=== PATIENT | female | born 1985 | race Caucasian/White ===

== ENCOUNTER 2020-11-28 10:12 | Day surgery (SDC) | payer OTHER, SELFPAY ==
[2020-11-28] VITALS (10 sets, daily range): BP systolic 103–122; BP diastolic 63–78; PULSE 83–114; RESP 14–18; TEMP 36.4–36.7; O2SAT 98–100; BMI 39.4
[2020-11-28] MEDS: LACTATED RINGERS 1,000 ML 42 ML IV (10:44)
[2020-11-28] MEDS: SCOPOLAMINE 1 PATCH TOP (10:46)
[2020-11-28] MEDS: ACETAMINOPHEN 325 MG TABLET 975 MG PO (10:46)
--- NOTE | 2020-11-28 12:54 | PM.PREOP ---
Pre-operative Note COVID-19 COVID-19 status: Result pending Interval Note History & Physical reviewed/Exam performed by Physician: Yes Changes to H&P: No
--- NOTE | 2020-11-28 12:55 | PM.HP.1 ---
History of Present Illness History of Present Illness Date Patient Seen: 11/28/20 Time Patient Seen: 12:55 Chief complaint: Chronic tonsillitis Narrative: 35-year-old female with a diagnosis of chronic tonsillitis, recurring acute tonsillitis, throat pain, and upper airway obstruction, with failure of medical therapy, presents for tonsillectomy and possible adenoidectomy. She was last seen in clinic 10/23/2020, no interval changes, no recent cough, cold, or fever. She plans on returning to [place] later today. Patient History Family & Social History Social History: household members none Tobacco & Substance use: Smoking Status Never smoker alcohol intake current alcohol intake frequency holiday/special occasion Substance Use Type does not use Meds Home Medications and Allergies Home Medications Medication Instructions Recorded Confirmed Type venlafaxine 75 mg PO DAILY 11/27/20 11/28/20 History vitamin B complex 1 tab PO DAILY 11/27/20 11/28/20 History Review of Systems Review of Systems ROS: Yes All systems reviewed with the patient and are negative except as otherwise documented Exam Vital Signs (past 8 hours): - 11/28/20 10:48 Temperature 98.1 F Pulse Rate 92 H Respiratory Rate 16 Blood Pressure 115/78 Pulse Oximetry 100 Oxygen Delivery Method Room Air Narrative Exam Narrative: Well-developed well-nourished female alert and oriented, no acute distress. Heart regular rate and rhythm without murmur, lungs clear to auscultation bilaterally Assessment & Plan Assessment & Plan narrative: Assessment: Chronic tonsillitis, recurring acute tonsillitis, throat pain, upper airway obstruction Plan: Following discussion of the material risks benefits complications and alternatives, the patient elected to proceed with tonsillectomy and possible adenoidectomy.
--- NOTE | 2020-11-28 12:57 | PM.OP.1 ---
Operative Date/Time/Diagnoses Date of procedure: 11/28/20 Time of procedure: 13:52 Pre-op diagnosis: Chronic tonsillitis, recurring acute tonsillitis, throat pain, upper airway obstruction Post-op diagnosis: same Procedure & Clinicians Procedure: Tonsillectomy Same procedure as scheduled: Yes Indications: 35-year-old female with the above diagnoses incompletely managed with medical therapy presents for the above procedures. Following discussion of the material risks benefits complications and alternatives, she elected to proceed. Surgeon: Juan Mejias Click Yes if Unassisted: Yes Anesthesia Type: General and Local Operative Notes Findings: Intact palate, single uvula, 2+ tonsils, no significant adenoids Closure Type: not applicable Specimen(s): none sent Estimated Blood Loss (mL): 20 Blood products transfused: none Procedure in detail: Following identification and confirmation of consent the patient was brought to the operating room suite and placed in the supine position. General endotracheal anesthesia was administered. A head wrap, shoulder roll, and mouth gag were placed and a red rubber catheter was inserted through the nostril and out the mouth to retract the soft palate. There was no significant adenoid tissue. The left tonsil was retracted medially and suction electrocautery on a setting of 30 was used to dissect the tonsil in a subcapsular plane, followed by hemostasis with the same. This process was repeated on the right side with identical findings. The tonsillar fossae were superficially infiltrated bilaterally with a 1:1 mixture of 1% lidocaine 1 100,000 epinephrine and 0.25% Marcaine 1 to 017100 epinephrine. Mouth gag and rubber catheter were removed and the patient was extubated in the operating room and taken to the recovery room in stable condition without known complication. Complications: none Post-operative Condition: stable Disposition: same day surgery Plan for aftercare: Tylenol alternating with Advil for baseline pain control, oxycodone for breakthrough pain. Push fluids, aim for 4 L daily, no heavy lifting or straining 2 weeks.
--- NOTE | 2020-11-28 13:31 | SUR.OPER ---
Supine on padded OR bed, head on gel doughnut, arms secured on padded arm boards at <90 degrees abduction, legs uncrossed, safety belt at thigh, tape over blanket over lower legs.
[2020-11-28] MEDS: LIDOCAINE 1% W/EPI 20 ML INJ (13:35)
[2020-11-28] MEDS: BUPIVACAINE 0.25% W/ EPI 30 ML VIAL INJ (13:35)
[2020-11-28] MEDS: OXYCODONE IR 5 MG TABLET PO (14:22)
[2020-11-28] MEDS: ONDANSETRON 4 MG/2 ML INJ IV (14:22)
== END 2020-11-28 14:45 | disposition home or self-care (01) ==
PROVIDERS: PCP Nurse Practitioner Family; Referring Provider Otolaryngology; Visit Provider Otolaryngology
PROC: (CPT 42826; principal; 2020-11-28 11:15)
DX: J35.01 Chronic tonsillitis (principal); J98.8 Other specified respiratory disorders; F32.9 Major depressive disorder, single episode, unspecified
CPT/HCPCS: 42826; 81025; J0330; J1100; J2250; J2405; J2704; J3010

== ENCOUNTER → 2021-04-04 12:26 | Outpatient (CLI) | payer OTHER, SELFPAY ==
--- NOTE | 2021-04-04 | DI.US.S_ITS ---
PROCEDURE: US THYROID INDICATIONS: RIGHT THYROID NODULES TECHNIQUE: Real-time scanning was performed of the thyroid gland, with image documentation. COMPARISON: Outside Facility, [facility], US SOFT TISSUE HEAD OR NECK, 12/26/2020, 14:12. FINDINGS: Right: Thyroid lobe is normal in size and is homogeneous in echotexture. Left: Thyroid lobe is normal in size and contains a single nodule. Nodule number: 1 Location: Left mid Size: 0.9 x 0.6 x 0.9 cm. Composition: Solid Echogenicity: Hypoechoic Shape: Wider than tall Margins: Smooth Echogenic foci: Non Total points: 4 ACR TI-RADS category: Moderately suspicious IMPRESSION: 1. Single small nodule in the mid aspect of the left thyroid lobe. Nodule has imaging characteristics which are moderately suspicious (TI-RADS 4). Given size and imaging characteristics of the nodule and following discussion with the patient, scheduled fine-needle aspiration was canceled. Patient preferred option of follow-up ultrasound at 1, 3 and 5 years. 2. Nodule identified in the superior margin of the left lobe of thyroid gland by prior ultrasound obtained December 26, 2020 is not identified in the current study. ACR TI-RADS definitions and recommendations: TI-RADS 1 (benign): 0 points. FNA not needed. TI-RADS 2 (not suspicious): 2 points. FNA not needed. TI-RADS 3 (mildly suspicious): 3 points. * FNA if 2.5 cm or larger, follow up if 1.5 cm or larger (at 1, 3, and 5 years). TI-RADS 4 (moderately suspicious): 4-6 points. * FNA if 1.5 cm or larger, follow up if 1 cm or larger (at 1, 2, 3, and 5 years). TI-RADS 5 (highly suspicious): 7 points or more. * FNA if 1 cm or larger, follow up if 0.5 cm or larger (every year for 5 years). Dictated by: Cherri Wong MD, PhD on 04/04/2021 at 15:39 Approved by: Cherri Wong MD, PhD on 04/04/2021 at 15:45
== END ==
PROVIDERS: PCP Family Medicine; Referring Provider Otolaryngology; Visit Provider Otolaryngology
DX: E04.1 Nontoxic single thyroid nodule (principal)
CPT/HCPCS: 76536

== ENCOUNTER 2022-09-07 10:33 | Day surgery (SDC) | payer OTHER, SELFPAY ==
[2022-09-01 15:19] VITALS: BMI 43.7
[2022-09-07] VITALS (8 sets, daily range): BP systolic 115–141; BP diastolic 76–91; PULSE 80–94; RESP 16–27; TEMP 36.2–36.6; O2SAT 98–100; BMI 43.2
--- NOTE | 2022-09-07 | PATH_ITS ---
[facility] Accession Number: [id number] No. of containers..01 Tissue . 01 Material submitted: . endometrium - ENDOMETRIAL CURRETINGS . 01 Diagnosis: A. Endometrium, Curettage: Late secretory phase endometrium. Focal features of polyp and breakdown with extensive hyalinization. No evidence of endometrioid intraepithelial neoplasia or malignancy. [facility] 09/11/2022 1535 Local . 01 Electronically signed: . Melly Chapin MD, Pathologist NPI- [id number] . 01 Gross description: . ENDOMETRIAL CURRETINGS: Received in formalin are minute fragments of mucoid and hemorrhagic material measuring 1.2 x 0.5 x 0.3 cm in aggregate. Submitted in toto in 1 cassette. /BRENDA 09/08/2022 1859 Local . 01 Pathologist provided ICD-10: N84.0, R93.89 . 01 CPT . 585456 Specimen Comment: A courtesy copy of this report has been sent to [phone] Performed at: 01 [facility] [address] [place] [address], [place], [place] [id number] MD Suhas Grider MD Phone: [phone]
[2022-09-07] MEDS: LACTATED RINGERS 1,000 ML 100 ML IV (11:26)
--- NOTE | 2022-09-07 12:35 | P.HP_ITS ---
History of Present Illness History of Present Illness Date Patient Seen: 09/07/22 Time Patient Seen: 12:36 Chief complaint: [facility] Narrative: Patient is a 37-year-old 0 who presents for a D&C hysteroscopy with polypectomy. This is being done due to menorrhagia, pelvic pain, and polyp seen on ultrasound. Patient History Medical History (Updated 09/01/22 @ 15:26 by Jennifer Jane RN) Genital warts HPV (human papilloma virus) anogenital infection Infertility Irregular menstrual cycle Migraines Ovarian cyst Thyroid nodule (2020) Surgical History (Updated 09/01/22 @ 15:21 by Jennifer Jane RN) Hx of tonsillectomy (11/28/20) Family & Social History Social History: household members none Tobacco & Substance use: Smoking Status Never smoker alcohol intake current alcohol intake frequency holiday/special occasion Substance Use Type marijuana Meds Home Medications and Allergies Home Medications Medication Instructions Recorded Confirmed Type venlafaxine 75 mg capsule,extended 75 mg PO DAILY 11/27/20 09/07/22 History release 24 hr vitamin B complex 1 tab PO DAILY 11/27/20 09/07/22 History Allergies Allergy/AdvReac Type Severity Reaction Status Date / Time No Known Drug Allergies Allergy Verified 06/23/22 14:56 Exam Vital Signs (past 8 hours): - 09/07/22 11:02 Temperature 97.9 F Pulse Rate 85 Respiratory Rate 16 Blood Pressure 115/76 Pulse Oximetry 100 Oxygen Delivery Method Room Air Oxygen Delivery Method Room Air Narrative Exam Narrative: HEENT: No thyromegaly, no anterior cervical or supraclavicular lymphadenopathy. Lungs:Clear to auscultation bilaterally, no wheezes. Cardiovascular: Regular rate and rhythm, no murmurs, rubs, or gallops. Abdomen: No scars. No hepatosplenomegaly. No masses palpable. External genitalia: Normal Vagina: Normal Cervix: Normal Bimanual exam: 7 Week size uterus. Mobile. No adnexal masses or tenderness Ultrasound: 20 mm endometrial lining with a vascular stalk Assessment & Plan Assessment & Plan narrative: Assessment: 37-year-old 0 with menorrhagia, 20 mm endometrial lining with vascular stalk, and pelvic pain Plan: D&C hysteroscopy with polypectomy The risks, benefits, and alternatives to the procedure were explained to the patient. The risks including bleeding, infection, and uterine perforation. She understands these risks and agrees to proceed. A full par Q was held and consent form was signed. Time Spent With Patient Time with patient: less than 30 minutes Critical Care time: I spent a total of [] minutes of critical care time on this patient's care today; this time is exclusive of procedural time.
--- NOTE | 2022-09-07 12:39 | PM.PREOP ---
Pre-operative Note COVID-19 Criteria for continued procedure: Non-surgical alternatives not available or appropriate per current SOC Interval Note History & Physical reviewed/Exam performed by Physician: Yes Changes to H&P: No H&P completed within 30 days and has changed as indicated here:: 09/07/22
--- NOTE | 2022-09-07 13:09 | SUR.OPER ---
Lithotomy on padded OR bed, head on pillow, arms secured on padded arm boards at <90 degrees abduction. Legs secured in padded yellow fins stirrups.
--- NOTE | 2022-09-07 13:11 | PM.GYNOP.1 ---
Operative Date/Time/Diagnoses Date of procedure: 09/07/22 Time of procedure: 13:12 Pre-op diagnosis: Abnormal uterine bleeding Menorrhagia Pelvic pain Thickened endometrial lining to 20 mm Post-op diagnosis: same Procedure & Clinicians Procedure: Procedures Operation Date: 09/07/22 11:15 <No data on this case meets the specified criteria> Indications: Abnormal uterine bleeding with menorrhagia Thickened endometrial lining to 20 mm Pelvic pain Surgeon: Massiel Bryant Anesthesia Type: General (LMA) Operative Notes Findings: 7 week size anteverted uterus Bicornuate uterus Closure Type: not applicable Specimen(s): endometrial curettings Estimated blood loss (mL): 5 Blood products transfused: none Procedure in detail: After informed consent was obtained, the patient was taken to the operating room where she was placed in the dorsal supine position. After adequate LMA general anesthesia was achieved, she was placed in the dorsal lithotomy position, and prepped and draped in the usual sterile fashion. A time-out was performed. A bivalve speculum was placed into the vagina and the anterior lip of the cervix was grasped with a single-tooth tenaculum. The cervical os was sequentially dilated until the hysteroscope could pass easily into the endometrial cavity. Initial inspection with the hysteroscope revealed a septum that came down to the top of the cervix. The hysteroscope was directed into each horn of the uterus. No polyps were visualized. The hysteroscope was removed. Sharp curettage was performed including both horns of the uterus with a large amount of endometrial curettings. The instruments were removed from the uterus. The single-tooth tenaculum was removed from the anterior lip of the cervix. The bivalve speculum was removed from the vagina. Sponge, lap, and instrument counts were correct x2. The patient tolerated the procedure well, and was taken to PACU in stable condition. Complications: none Post-operative Condition: stable Disposition: PACU Plan for aftercare: Home after recovery
[2022-09-07] MEDS: OXYCODONE/ACETAMINOPHEN 5/325 TABLET 1 TAB PO (13:50)
--- NOTE | 2022-09-07 14:04 | SUR.PHASEII ---
1400: Pt A&Ox4, reports pain as tolerable, VSS and ready to discharge home. Discharge instructions reviewed with pt with time allowed for questions. Pt handoff to CONNIE Valdez for phase 2.
== END 2022-09-07 14:30 | disposition home or self-care (01) ==
PROVIDERS: PCP Family Medicine; Referring Provider Obstetrics & Gynecology; Visit Provider Obstetrics & Gynecology
PROC: 0UDB8ZZ Extraction of Endometrium, Via Natural or Artificial Opening Endoscopic (ICD-10-PCS; CPT 58558; principal; 2022-09-07 11:15)
DX: N93.9 Abnormal uterine and vaginal bleeding, unspecified (principal); Q51.3 Bicornate uterus; N84.0 Polyp of corpus uteri
CPT/HCPCS: 58558; 81025; J1100; J1885; J2250; J2405; J2704; J3010

== ENCOUNTER → 2023-02-10 14:48 | Outpatient (CLI) | payer OTHER, SELFPAY ==
[2023-02-10 15:15] LABS: Specimen Label NATERA
[2023-02-10 17:00] LABS: Add Manual Diff / Slide Review NO; Basophils Absolute Auto 0 /uL (0-100); Basophils Percent Auto 0.4 % (0-2); Eosinophils Absolute Auto 100 /uL (0-450); Eosinophils Percent Auto 0.7 % (2-4); Hematocrit 35.4 % (36-46); Hemoglobin 12.1 g/dL (12.0-16.0); Lymphocytes Absolute Auto 2500 /uL (1100-4500); Mean Corpuscular HGB Conc 34.3 % (30-36); Mean Corpuscular Hemoglobin 30.6 PG (26-34); Mean Corpuscular Volume 89.4 fL (80-100); Monocytes Absolute Auto 600 /uL (0-900); Monocytes Percent Auto 8.5 % (3-14); Neutrophils Absolute Auto 4400 /uL (1500-7000); Neutrophils Percent Auto 57.4 % (50-75); Platelet Count 235 X10^3/uL (150-400); Red Blood Cell Count 3.96 X10^6/uL (4.0-5.2); Red Cell Distribution Width 13.1 % (11.6-14.8); White Blood Cell Count 7.6 X10^3/uL (4.5-11.0)
[2023-02-10 19:02] LABS: Urine N gonorrhoeae NOT DETECTED
[2023-02-10 19:11] LABS: Urine Chlamydia NOT DETECTED
[2023-02-11 16:09] LABS: HIV 1 & 2 Ab/Ag 4th Gen Combo NEGATIVE (NEGATIVE); Hep C Virus Ab w/Reflex Quant NEGATIVE s/c (NEGATIVE); Hepatitis B Surface Antigen NEGATIVE s/c (NEGATIVE); Rubella Antibody IgG 81.9 IU/mL (>15)
[2023-02-12 03:43] LABS: RPR Screen Non Reactive (Non Reactive)
[2023-02-12 09:43] LABS: Varicella IgG Antibody 1835 index (Immune >165)
== END ==
PROVIDERS: PCP Family Medicine; Visit Provider Obstetrics & Gynecology
DX: Z34.01 Encounter for supervision of normal first pregnancy, first trimester (principal)
CPT/HCPCS: 36415; 80055; 86787; 86803; 86850; 86900; 86901; 87086; 87389; 87491; 87591

== ENCOUNTER → 2023-04-06 11:40 | Outpatient (CLI) | payer OTHER, SELFPAY ==
--- NOTE | 2023-04-06 14:18 | DI.US.S_ITS ---
PROCEDURE: US OB >= 14 WEEKS FETUS INDICATIONS: ANATOMY OUTSIDE/PRIOR DATING DATA: Last menstrual period (LMP): 11/27/2022 LMP-based estimated date of delivery (CURT): 09/03/2023. First dating scan (date and location): 02/10/2023 Estimated date of delivery (CURT) from first dating scan: 08/31/2023. The calculations are made using the working CURT of 09/03/2023. TECHNIQUE: Real-time scanning was performed of the fetus, with image documentation and biometric measurements. Endovaginal scanning: Not indicated. COMPARISON: None. FINDINGS: General: A single living intrauterine gestation is present. Presentation: Vertex Placenta: Placental position is posterior fundal, without previa. Amniotic fluid index: 12.4 cm, normal range is 5-24 cm. Single deepest vertical pocket is 3.9 cm. heart rate: 150 beats per minute. Maternal cervical canal: 3.6 cm long. Normal lower limit is 2.5 cm. biometrics: Biparietal diameter: 4.4 cm, 19 weeks, 2 days. Head circumference: 16.9 cm, 19 weeks, 4 days. Abdominal circumference: 14.8 cm, 20 weeks, 1 day. Femur length: 2.8 cm, 18 weeks, 4 days. Clinically estimated gestational age: 18 weeks, 4 days. Composite gestational age from present scan: 19 weeks, 3 days. Estimated weight and percentile: 291 g, 90%. Anatomic survey: Neuro: Ventricles are non-dilated at less than 10 mm. Cisterna magna is normal at 3-11 mm. Cerebellum is normal in size and morphology. Nuchal skin fold: Normal at less than 6 mm between 14-21 weeks gestational age. Face: Nose and lips, facial profile are not well seen. Spine: No evidence for spina bifida. Heart: 4-chambered heart and outflow tracts are not well seen. Diaphragm: Diaphragm is intact. Stomach: Left-sided stomach is present. Kidneys: No hydronephrosis. Normal is less than 5 mm in 2nd trimester, less than 7 mm in 3rd trimester. Cord: 3-vessel cord has orthotopic insertion. Bladder: Normal in size. Extremities: Bilateral upper extremities are noted and are within normal limits. Bilateral lower extremities are not well seen. IMPRESSION: 1. Single live intrauterine gestation with fetus in vertex presentation. heart rate is 150 beats per minute. Normal amount of amniotic fluid. Estimated weight is at 90%. 2. facial profile, cardiac structures and bilateral lower extremities are not well seen due to position. Rest of the anatomic survey is normal. We strive to produce accurate, complete, and clear reports of imaging services. To assist us in improving patient care, this report was composed using standard report templates and voice recognition software. Therefore, it may contain abnormal punctuation, insertions and/or omissions. Occasional wrong-word or sound-alike substitutions may occur. Though we review the report and make efforts to correct it, we do recommend that the report be read carefully in proper context to recognize any text inaccuracies. Dictated by: Donta Christianson M.D. on 04/06/2023 at 15:59 Approved by: Donta Christianson M.D. on 04/06/2023 at 16:01
[2023-04-09 10:12] LABS: AFP Value 54.2 ng/mL (.); Gest Age on Col Date 21.4 weeks (.); Insulin Dep Diabetes No (.); OSBR Risk 1IN 9862 (.); Results Report (.); Test Results *Screen Negative* (.)
== END ==
PROVIDERS: Obstetrics & Gynecology; PCP Family Medicine; Referring Provider Specialist; Visit Provider Specialist
DX: Z34.02 Encounter for supervision of normal first pregnancy, second trimester (principal); Z3A.19 19 weeks gestation of pregnancy
CPT/HCPCS: 36415; 76811; 82105

== ENCOUNTER → 2023-05-03 13:58 | Outpatient (CLI) | payer OTHER, SELFPAY ==
[2023-05-03 19:15] LABS: Alanine Aminotransferase 15 IU/L (<35); Albumin 3.7 g/dL (3.5-5.0); Albumin Globulin Ratio 1.3 (1.0-2.8); Alkaline Phosphatase 65 U/L (38-126); Aspartate Aminotransferase 18 IU/L (14-36); BUN Creatinine Ratio 11.7 (6-22); Bilirubin Total 0.2 mg/dL (0.2-1.3); Blood Urea Nitrogen 7 mg/dL (7-17); Calcium 9.7 mg/dL (8.4-10.2); Carbon Dioxide 20 mmol/L (22-32); Chloride 103 mmol/L (98-107); Estimated Glomerular Filt Rate > 60 mL/min (>60); Globulin 2.8 g/dL (1.7-4.1); Glucose 71 mg/dL (70-100); HEMOLYSIS < 15 (0-50); Potassium 3.9 mmol/L (3.4-5.1); Sodium 132 mmol/L (137-145); Total Protein 6.5 g/dL (6.3-8.2)
== END ==
PROVIDERS: PCP Family Medicine; Referring Provider Physician Assistant Medical; Visit Provider Physician Assistant Medical
DX: L29.9 Pruritus, unspecified (principal); O99.712 Diseases of the skin and subcutaneous tissue complicating pregnancy, second trimester
CPT/HCPCS: 36415; 80053; 82239

== ENCOUNTER → 2023-06-01 07:37 | Outpatient (CLI) | payer OTHER, SELFPAY ==
[2023-06-01 09:59] LABS: Hemoglobin 11.7 g/dL (12.0-16.0)
[2023-06-01 10:19] LABS: GTT (PREG) 1 Hour PP 50gm Dose 89 mg/dL (76-139)
== END ==
PROVIDERS: PCP Family Medicine; Referring Provider Physician Assistant Medical; Visit Provider Physician Assistant Medical
DX: Z34.02 Encounter for supervision of normal first pregnancy, second trimester (principal); Z3A.26 26 weeks gestation of pregnancy
CPT/HCPCS: 36415; 82950; 85014; 85018

== ENCOUNTER 2023-06-29 11:43 | Outpatient (CLI) | payer OTHER, SELFPAY | END 2023-06-29 12:30 | disposition home or self-care (01) | LOC: LABOR 12:25 → OB 07-08 16:07 | PROVIDERS: PCP Family Medicine; Referring Provider Obstetrics & Gynecology; Visit Provider Obstetrics & Gynecology | DX: O13.3 Gestational [pregnancy-induced] hypertension without significant proteinuria, third trimester (principal); Z3A.30 30 weeks gestation of pregnancy | CPT/HCPCS: 59025; G0378; G0379 ==

== ENCOUNTER 2023-07-09 09:43 | Outpatient (CLI) | payer OTHER, SELFPAY | END 2023-07-09 10:25 | disposition home or self-care (01) | LOC: LABOR 09:50 → OB 07-12 06:40 | PROVIDERS: PCP Family Medicine; Referring Provider Obstetrics & Gynecology; Visit Provider Obstetrics & Gynecology | DX: O13.3 Gestational [pregnancy-induced] hypertension without significant proteinuria, third trimester (principal); Z3A.32 32 weeks gestation of pregnancy | CPT/HCPCS: 59025; G0378; G0379 ==

== ENCOUNTER 2023-07-16 13:34 | Outpatient (CLI) | payer OTHER, SELFPAY ==
--- NOTE | 2023-07-17 18:44 | P.TNLD_ITS ---
Visit Information Visit Information Date of evaluation: 07/16/23 Primary OB Provider: Massiel Bryant Reason for Evaluation: Yes non-stress test non-stress test reason: hypertension/pre-eclampsia PFSH Medical History (Updated 06/04/23 @ 17:20 by Massiel Bryant MD) Pruritus of in second trimester Irregular menstrual cycle Ovarian cyst Infertility HPV (human papilloma virus) anogenital infection Genital warts Thyroid nodule (2020) Migraines Surgical History (Updated 01/21/23 @ 14:45 by Katy Longoria, RN) H/O tooth extraction Hx of tonsillectomy (11/28/20) Family History (Updated 01/21/23 @ 14:48 by Katy Longoria, RN) Mother Diabetes mellitus Osteoporosis Grandmother Osteoporosis Grandfather Diabetes mellitus Grandfather Heart disease Alcoholism Granddaughter Alcoholism Father Alcoholism Family estrangement Social History (System 12/11/21 @ 09:11 by Dorothy Balbuena) marital status: unmarried,single number of children: 0 household members: none lives independently: Yes caregiver/support person: No housing: apartment pets and animals: Yes (1 cat, 1 dog. 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) current occupational exposures/hazards: No special eren needs: No travel history: over 6 months ago seatbelt use: always water heater temp set < 120 deg: Yes working smoke detector in home: Yes fire extinguisher in home: Yes carbon monox detector in home: Yes firearms in home: No do you feel safe at home: Yes Smoking Status: Never smoker second hand exposure: Yes (s/o vapes) alcohol intake: former (occasionally when not ) substance use type: marijuana (not while /) during the past year weight has: increased > 10 lbs well-balanced diet: about half the time daily servings fruits/ve-4 caffeine: Yes Type(s) of exercise: walking Evaluation Evaluation Variability: Moderate (11-25) monitor accelerations: Present Monitor Decelerations: Absent Category of Tracing: Reactive Diagnosis, Plan/Disposition Plan/Disposition Plan: Assessment: 33 wks gest Gest HTN Reactive NST Plan: F/U 1 week for NST OB Disposition: home
== END 2023-07-16 14:13 | disposition home or self-care (01) ==
LOC: LABOR 14:34 → OB 07-19 12:00
PROVIDERS: PCP Family Medicine; Referring Provider Obstetrics & Gynecology; Visit Provider Obstetrics & Gynecology
DX: O13.3 Gestational [pregnancy-induced] hypertension without significant proteinuria, third trimester (principal); Z3A.33 33 weeks gestation of pregnancy
CPT/HCPCS: 59025; G0378; G0379

== ENCOUNTER 2023-07-23 09:39 | Outpatient (CLI) | payer OTHER, SELFPAY ==
[2023-07-23 10:39] LABS: Add Manual Diff / Slide Review NO; Basophils Absolute Auto 100 /uL (0-100); Basophils Percent Auto 0.9 % (0-2); Eosinophils Absolute Auto 100 /uL (0-450); Eosinophils Percent Auto 0.6 % (2-4); Hematocrit 33.5 % (36-46); Hemoglobin 11.4 g/dL (12.0-16.0); Lymphocytes Absolute Auto 1900 /uL (1100-4500); Lymphocytes Percent Auto 20.3 % (25-40); Mean Corpuscular Hemoglobin 28.8 PG (26-34); Mean Corpuscular Volume 84.8 fL (80-100); Monocytes Absolute Auto 500 /uL (0-900); Monocytes Percent Auto 5.6 % (3-14); Neutrophils Absolute Auto 6900 /uL (1500-7000); Neutrophils Percent Auto 72.6 % (50-75); Platelet Count 242 X10^3/uL (150-400); Red Blood Cell Count 3.95 X10^6/uL (4.0-5.2); Red Cell Distribution Width 13.2 % (11.6-14.8); White Blood Cell Count 9.6 X10^3/uL (4.5-11.0)
[2023-07-23 10:46] LABS: Aspartate Aminotransferase 22 IU/L (14-36); BUN Creatinine Ratio 11.8 (6-22); Blood Urea Nitrogen 8 mg/dL (7-17); Estimated Glomerular Filt Rate > 60 mL/min (>60); Uric Acid 4.6 mg/dL (2.5-6.2)
[2023-07-23 11:27] LABS: Creatinine Urine Random 98.8 mg/dL; Protein (Total) Urine Random 25 mg/dL (0-12); Protein Creatinine Ratio Urine 0.25 GRAM/24H
== END 2023-07-23 11:17 | disposition home or self-care (01) ==
LOC: LABOR 11:18 → OB 07-26 11:55
PROVIDERS: PCP Family Medicine; Referring Provider Obstetrics & Gynecology; Visit Provider Obstetrics & Gynecology
DX: Z36.9 Encounter for antenatal screening, unspecified (principal)
CPT/HCPCS: 36415; 59025; 82570; 84156; 84450; 84550; 85025; G0378; G0379

== ENCOUNTER 2023-07-27 10:47 | Outpatient (CLI) | payer OTHER, SELFPAY | END 2023-07-27 11:30 | disposition home or self-care (01) | LOC: LABOR 11:27 → OB 08-03 06:50 | PROVIDERS: PCP Family Medicine; Referring Provider Obstetrics & Gynecology; Visit Provider Obstetrics & Gynecology | DX: Z36.9 Encounter for antenatal screening, unspecified (principal) | CPT/HCPCS: 59025; G0378; G0379 ==

== ENCOUNTER 2023-08-06 10:00 | Outpatient (CLI) | payer OTHER, SELFPAY ==
--- NOTE | 2023-08-06 | DI.US.S_ITS ---
PROCEDURE: US OB LIMITED INDICATIONS: GROWTH OUTSIDE/PRIOR DATING DATA: Last menstrual period (LMP): 11/27/2022. LMP-based estimated date of delivery (CURT): 09/03/2023. First dating scan (date and location): 02/10/2023. Estimated date of delivery (CURT) from first dating scan: 08/31/2023. The calculations are made using the working CURT of 09/03/2023. TECHNIQUE: Real-time scanning was performed of the fetus, with image documentation and biometric measurements. Endovaginal scanning: Not performed COMPARISON: None. FINDINGS: General: A single living intrauterine gestation is present. Presentation: Vertex. Placenta: Placental position is posterior , without previa. Amniotic fluid index: 15.5 cm, normal range is 5-24 cm. Single deepest vertical pocket is 5.4 cm. heart rate: 136 beats per minute. Maternal cervical canal: Not seen at late stage of biometrics: Biparietal diameter: 9.1 cm, 36 weeks 5 days Head circumference: 33.3 cm, 37 weeks 2 days Abdominal circumference: 33.3 cm, 37 weeks 2 days Femur length: 7.1 cm, 36 weeks 2 days Clinically estimated gestational age: 36 weeks 0 days Composite gestational age from present scan: 37 weeks 1 day Estimated weight and percentile: 3099 g, 79th percentile Biophysical profile: Tone: 2 Movement: 2 Respiration: 2 Largest Pocket: 2 Other: Not applicable. IMPRESSION: 1. Living late 3rd trimester intrauterine with no sonographic evidence of complications. Current ultrasound dates are 8 days greater than clinical dates based on LMP. 2. Ultrasound biophysical profile is 8/8. Comment: There will probably be a different report generated regarding the ultrasound biophysical profile. The ultrasound biophysical profile is dictated in case a 2nd report is not created. We strive to produce accurate, complete, and clear reports of imaging services. To assist us in improving patient care, this report was composed using standard report templates and voice recognition software. Therefore, it may contain abnormal punctuation, insertions and/or omissions. Occasional wrong-word or sound-alike substitutions may occur. Though we review the report and make efforts to correct it, we do recommend that the report be read carefully in proper context to recognize any text inaccuracies. Dictated by: Fidel Camacho M.D. on 08/06/2023 at 13:04 Approved by: Fidel Camacho M.D. on 08/06/2023 at 13:08
== END 2023-08-06 12:00 | disposition home or self-care (01) ==
LOC: LABOR 10:07 → OB 08-10 08:54
PROVIDERS: PCP Family Medicine; Referring Provider Obstetrics & Gynecology; Visit Provider Obstetrics & Gynecology
DX: O13.3 Gestational [pregnancy-induced] hypertension without significant proteinuria, third trimester (principal); Z3A.36 36 weeks gestation of pregnancy
CPT/HCPCS: 59025; 59050; 76815; 76819; G0378; G0379

== ENCOUNTER 2023-08-12 19:14 | Inpatient (IN) | payer OTHER, SELFPAY ==
[2023-08-12 20:48] LABS: Add Manual Diff / Slide Review NO; Basophils Absolute Auto 0 /uL (0-100); Basophils Percent Auto 0.5 % (0-2); Eosinophils Absolute Auto 0 /uL (0-450); Eosinophils Percent Auto 0.6 % (2-4); Hemoglobin 10.2 g/dL (12.0-16.0); Lymphocytes Absolute Auto 2300 /uL (1100-4500); Lymphocytes Percent Auto 29.5 % (25-40); Mean Corpuscular Hemoglobin 28.3 PG (26-34); Mean Corpuscular Volume 83.4 fL (80-100); Monocytes Absolute Auto 500 /uL (0-900); Monocytes Percent Auto 6.8 % (3-14); Neutrophils Absolute Auto 4800 /uL (1500-7000); Neutrophils Percent Auto 62.6 % (50-75); Platelet Count 186 X10^3/uL (150-400); Red Cell Distribution Width 13.7 % (11.6-14.8); White Blood Cell Count 7.7 X10^3/uL (4.5-11.0)
[2023-08-12] MEDS: DINOPROSTONE VAG (CERVIDIL) 10 MG VAG (21:03)
[2023-08-12 21:24] VITALS: BP 141/75; PULSE 79
[2023-08-12] MEDS: LABETALOL 100 MG TABLET 200 MG PO (21:24)
[2023-08-13 00:13] VITALS: BP 142/88
[2023-08-13 02:29] LABS: Strep Grp B PCR NEG for Grp B Strep
[2023-08-13] MEDS: LACTATED RINGERS 1,000 ML 100 ML IV ×2 (02:46→22:43)
--- NOTE | 2023-08-13 07:58 | P.HPOB_ITS ---
OB HPI Date/Time Date of admission: 08/12/23 Date Patient Seen: 08/13/23 Time Patient Seen: 07:58 History of Present Condition Chief complaint: induction CURT Calculator 2 Estimated Delivery Date Method Current WG Current Estimate 09/03/23 Ultrasound #1 37w 0d Other Estimates 08/28/23 LMP (Uncertain) 37w 6d 08/31/23 Ultrasound #2 37w 3d Estimated Gestational Age (weeks): 37 : 1 Para: 0 care: good care, initiated at week # (10), number of visits (9) and pounds weight gain (10) Dating criteria OB: LMP confirmed by 1st trimester US Ultrasounds: normal 1st trimester US and normal mid trimester US Obstetrical complications: gestational hypertension Medical complications OB: none Indications Indication for induction OB: gestational HTN/pre-eclampsia Preadmission Labs Last OB Lab Results: 2 Blood Type A Positive 08/12/23 20:19 Antibody Screen Negative 08/12/23 20:19 Hematocrit 30.0 % (36-46) L 08/12/23 20:19 Hemoglobin 10.2 g/dL (12.0-16.0) L 08/12/23 20:19 Hepatitis B Surface Antigen Negative s/c (NEGATIVE) 02/10/23 15 :12 Hepatitis C Antibody Negative s/c (NEGATIVE) 02/10/23 15:12 Rubella Antibody 81.9 IU/mL (>15) 02/10/23 15:12 Varicella-Zoster IgG Antibody 1835 index (Immune >165) 02/10/23 15:12 Glucose 1 Hour 89 mg/dL (76-139) 06/01/23 07:44 Group B Streptococcus (PCR) Neg for grp b strep 08/12/23 19:40 -: Chlamydia screen: negative, Gonorrhea screen: negative and Urine: negative -: PAP smear: Normal (01/28) Genetic Screens: Cell-free DNA: Normal (normal male) and Alpha-fetoprotein: Normal External Labs -: Urine: negative Evaluation Evaluation Baseline heart rate: 130 Variability: Moderate (11-25) monitor accelerations: Present Monitor Decelerations: Absent Contraction Frequency (minutes): 4 Uterine Contraction Intensity: Mild Status: Category l Dilation (cm): 2.5 Effacement (%): 80 station: -1 Position of cervix: mid Consistency: medium [facility] Medical History (Updated 06/04/23 @ 17:20 by Massiel Bryant MD) Pruritus of in second trimester Irregular menstrual cycle Ovarian cyst Infertility HPV (human papilloma virus) anogenital infection Genital warts Thyroid nodule (2020) Migraines Surgical History (Updated 01/21/23 @ 14:45 by Katy Longoria, RN) H/O tooth extraction Hx of tonsillectomy (11/28/20) Family History (Updated 01/21/23 @ 14:48 by Katy Longoria RN) Mother Diabetes mellitus Osteoporosis Grandmother Osteoporosis Grandfather Diabetes mellitus Grandfather Heart disease Alcoholism Granddaughter Alcoholism Father Alcoholism Family estrangement Social History (System 12/11/21 @ 09:11 by Dorothy Balbuena) marital status: unmarried,single number of children: 0 household members: none lives independently: Yes caregiver/support person: No housing: apartment pets and animals: Yes (1 cat, 1 dog. 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) current occupational exposures/hazards: No special eren needs: No travel history: over 6 months ago seatbelt use: always water heater temp set < 120 deg: Yes working smoke detector in home: Yes fire extinguisher in home: Yes carbon monox detector in home: Yes firearms in home: No do you feel safe at home: Yes Smoking Status: Never smoker second hand exposure: Yes (s/o vapes) alcohol intake: former (occasionally when not ) substance use type: marijuana (not while /) during the past year weight has: increased > 10 lbs well-balanced diet: about half the time daily servings fruits/ve-4 caffeine: Yes Type(s) of exercise: walking Meds Home Medications and Allergies Home Medications Medication Instructions Recorded Confirmed Type calcium carbonate 200 mg calcium 200 mg PO QID PRN Acid Reflux 01/21/23 08/12/23 History (500 mg) chewable tablet (Tums) prenat.vits,buddy,[id number]-[id number]-[id number] 1 tab PO DAILY 01/21/23 08/12/23 History venlafaxine 150 mg 150 mg PO DAILY 01/21/23 08/12/23 History capsule,extended release 24 hr (Effexor XR) aspirin 81 mg tablet,delayed 81 mg PO DAILY 03/08/23 08/12/23 History release labetalol 200 mg tablet 200 mg PO BID #60 tabs 07/29/23 08/12/23 Rx Allergies Allergy/AdvReac Type Severity Reaction Status Date / Time No Known Drug Allergies Allergy Verified 07/27/23 10:13 OB Exam Narrative Exam Narrative: Generally: Patient comfortable, lying on her side, no acute distress Lungs: Clear to auscultation bilaterally Cardiovascular: Regular rate and rhythm FH: 39 cm EFW: 7 - 7 1/2 pounds Ext: trace edema, neg clonus Objective Labs 08/12/23 20:19 Labs: Laboratory Results - last 24 hr 08/12/23 08/12/23 19:40 20:19 WBC 7.7 RBC 3.60 L Hgb 10.2 L Hct 30.0 L MCV 83.4 MCH 28.3 MCHC 34.0 RDW 13.7 Plt Count 186 Neut % (Auto) 62.6 Lymph % (Auto) 29.5 [place] % (Auto) 6.8 Eos % (Auto) 0.6 L Baso % (Auto) 0.5 Neut # (Auto) 4800 Lymph # (Auto) 2300 [place] # (Auto) 500 Eos # (Auto) 0 Baso # (Auto) 0 Group B Strep (PCR) Neg for grp b strep Blood Type A Positive Antibody Screen Negative Assessment and Plan Assessment and Plan Assessment and Plan narrative: Assessment: 37-year-old 1 para 0 at 37 weeks' gestation status post Cytotec cervical ripening Favorable cervix Plan: Pitocin per protocol to Artificial rupture of membranes when able Epidural as necessary Expected management to spontaneous vaginal delivery Time Spent with Patient Total time spent with greater than 50% in coordination of care (as documented) at patient's floor/unit and/or counseling patient:: 15-24 minutes
[2023-08-13 08:50] VITALS: BP 137/89; PULSE 100
[2023-08-13] MEDS: LABETALOL 100 MG TABLET 200 MG PO ×2 (08:50→21:16)
[2023-08-13] MEDS: OXYTOCIN PREMIX 30 UNIT/500 ML PLAST..BAG IV (09:04)
--- NOTE | 2023-08-13 16:49 | PM.OBPNLAB ---
Date/Time Date Patient Seen: 08/13/23 Time Patient Seen: 12:02 Pain Control Pain control: tolerating well Pelvic Exam Dilation (cm): 3 Effacement (%): 80 station: -1 Amniotic membrane status: Intact Contractions Contractions on admission: none Monitor mode: External Pitocin rate (mU/min): 12 Contraction frequency (min): 5 Contraction duration (min): 1 Contraction intensity: Mild Status status: Category l Heart Rate Baseline: 130 Monitor Accelerations: Present Monitor Decelerations: Absent Monitor Variability: Moderate Assessment and Plan Assessment: induction ongoing Comments: AROM with copious clear amniotic fluid Expectant management to
--- NOTE | 2023-08-13 16:53 | PM.OBPNLAB ---
Date/Time Date Patient Seen: 08/13/23 Time Patient Seen: 16:53 Pain Control Pain control: tolerating well Pelvic Exam Dilation (cm): 3 Effacement (%): 80 station: -1 Amniotic membrane status: Ruptured Contractions Contractions on admission: none Monitor mode: External Pitocin rate (mU/min): 18 Contraction frequency (min): 3 Contraction duration (min): 1 Contraction pattern: Irregular Contraction intensity: Moderate Status status: Category l Heart Rate Baseline: 135 Monitor Accelerations: Present Monitor Decelerations: Absent Monitor Variability: Moderate Assessment and Plan Assessment: induction ongoing Plan: continuous present management
--- NOTE | 2023-08-13 20:38 | PM.OBPNLAB ---
Date/Time Date Patient Seen: 08/13/23 Time Patient Seen: 19:00 Pain Control Pain control: tolerating well Comments: Patient has no increasing discomfort with her contractions. We have discussed the issues of a possible epidural at this time. She declines currently. Pelvic Exam Dilation (cm): 2 Effacement (%): 70 station: -2 Amniotic membrane status: Ruptured Contractions Monitor mode: External Contraction frequency (min): 3 Contraction pattern: Irregular Contraction intensity: Moderate Status status: Category l Heart Rate Baseline: 135 Monitor Accelerations: Present Monitor Decelerations: Episodic Monitor Variability: Moderate Assessment and Plan Assessment: induction ongoing Comments: Dr. Bryant called me at roughly 1700 this evening. At that time she discussed the patient with me. She is a 37 week female at 37 years of age with her 1st . She has a history of chronic hypertension which has been treated with labetalol 200 mg b.i.d.. She is also received a baby aspirin daily. She has had her membranes ruptured and we are pursuing delivery. Patient has about a pit for the last 12 hours. She is showed minimal progress at this time. She is just now starting to have some pain with her contractions. Her MVU are roughly 230/10 minutes. We have discussed the options at this time we are planning to give her 2 hours off allowed to consume some food. Following this we will reinitiate her Pitocin. We will encourage her strongly to have an epidural to see if this does not allow her to relax her pelvis. We will obtain a urine for protein creatinine ratio We will restart her Effexor at this time.
[2023-08-13 21:16] VITALS: BP 121/67; PULSE 85
[2023-08-13] MEDS: VENLAFAXINE ER 75 MG CAP 150 MG PO (21:27)
--- NOTE | 2023-08-13 22:54 | PM.OBPNLAB ---
Date/Time Date Patient Seen: 08/13/23 Time Patient Seen: 22:40 Pain Control Pain control: tolerating well Comments: Patient is had her pit turned off roughly 2 hours ago. Subsequent to this she is become very anxious. She states that she is tired of having all the monitors on her. She also would like to have this over. The pit was turned off at roughly 8:00 a.m. and she is now having minimal contractions which she rates roughly at 2/10. Upon further questioning patient has had problems with his anxiety in the past. This does not happen very frequently. Upon reviewing her sleep pattern in the last week or so she states she has had minimal sleep. Hardly any last night with only minimal dosing today. She did not receive her Effexor at her morning usual time and states that in the past she relies on this to keep her centered. Pelvic exam was deferred at this time. Pelvic Exam Effacement (%): 70 station: -2 Amniotic membrane status: Ruptured Contractions Monitor mode: Internal (IUPC has showed a resolution of her contractions since her pit has been turned off. She has contractions about every 12-8 minutes. She rates these as 2/10.) Pitocin rate (mU/min): 0 Contraction frequency (min): 12 Contraction duration (min): 1 Contraction pattern: Irregular Contraction phase: Resting (Nineteen MVU s) Contraction intensity: Mild Status status: Category l Heart Rate Baseline: 135 Monitor Accelerations: Periodic Monitor Decelerations: Absent Monitor Variability: Moderate Assessment and Plan Assessment: induction ongoing Comments: Patient has some real difficulty with anxiety. I believe this is most likely to her lack of rest. I have had a long discussion with the patient and her spouse for roughly 15 minutes about her options. We would like to proceed on with a vaginal delivery. But at this time I believe that she needs to have rest. To achieve this I am recommending she have an epidural to allow her to relax and catch some sleep. Once this is occurring the option of restarting her Pitocin would be pursued. I have told her she has not delivered by noon we will have to probably proceed on section. I have reassured her that this will not continue indefinitely. I have reassured her that I will come in at any time she needs me.
[2023-08-14] MEDS: DEXTROSE 5%-LACTATED RINGERS 1,000 ML 125 ML IV ×2 (00:27→08:49)
[2023-08-14 01:07] LABS: Creatinine Urine Random 98.2 mg/dL; Protein (Total) Urine Random 16 mg/dL (0-12); Protein Creatinine Ratio Urine 0.16 GRAM/24H
--- NOTE | 2023-08-14 07:22 | PM.OBPNLAB ---
Date/Time Date Patient Seen: 08/14/23 Time Patient Seen: 07:22 Pain Control Pain control: epidural (Patient was able to sleep.) Pelvic Exam Dilation (cm): 2 Effacement (%): 80 station: -2 Amniotic membrane status: Ruptured Contractions Monitor mode: Internal (IUPC has showed a resolution of her contractions since her pit has been turned off. She has contractions about every 12-8 minutes. She rates these as 2/10.) Pitocin rate (mU/min): 16 Contraction frequency (min): 12 Contraction duration (min): 3 Contraction pattern: Regular Contraction phase: Resting (Nineteen MVU s) Contraction intensity: Moderate Intrauterine tone measurement: 18 Status status: Category l Heart Rate Baseline: 135 (Patient had an episode change in baseline with good variability to 150 which returned to her normal baseline.) Monitor Accelerations: Present Monitor Decelerations: Variable (Patient had a deep variable down to 60 which responded and rebounded back to the normal baseline with good variability afterwards.) Monitor Variability: Moderate Assessment and Plan Assessment: induction ongoing Plan: continuous present management Comments: heart rate for the most part has been reassuring. She has had an episode of elevated baseline which was turned to normal spontaneously. She also had an episode of deep variable down to 60 which returned normal with good variability afterwards. At this point her MV views are not adequate. She has had no change in her cervix since rupture of membranes at noon yesterday. She has had 1 episode of adequate contractions roughly 8:00 a.m. yesterday. We will try and increase the Pitocin to 20 IU. If this is unsuccessful or if she fails to show any further progress will proceed to section. At this point the appears to be tolerating labor quite well. Patient's blood pressures have all remained normal Patient's anxiety appears to be much better controlled at this time in that she is currently sleeping.
[2023-08-14] MEDS: FENT 2MCG/ML BUPIV 0.125% EPI 200 MCG/100 ML PLAST..BAG 10 MCG EPIDURAL ×3 (07:50→08:50)
[2023-08-14 08:43] VITALS: BP 163/86; PULSE 89
[2023-08-14] MEDS: LABETALOL 100 MG TABLET 200 MG PO ×2 (08:43→20:57)
[2023-08-14] MEDS: VENLAFAXINE ER 75 MG CAP 150 MG PO (08:44)
[2023-08-14] MEDS: CITRIC ACID/SODIUM CITRATE 15 ML SOLUTION 30 ML PO (11:37)
--- NOTE | 2023-08-14 11:40 | PM.OBPNLAB ---
Date/Time Date Patient Seen: 08/14/23 Time Patient Seen: 11:40 Pelvic Exam Dilation (cm): 3 Effacement (%): 90 station: -1 Amniotic membrane status: Ruptured Contractions Monitor mode: Internal (IUPC has showed a resolution of her contractions since her pit has been turned off. She has contractions about every 12-8 minutes. She rates these as 2/10.) Pitocin rate (mU/min): 24 Contraction frequency (min): 3 Contraction duration (min): 1 Contraction pattern: Regular Contraction phase: Resting (Nineteen MVU s) Contraction intensity: Moderate Intrauterine tone measurement: 18 Status status: Category l Heart Rate Baseline: 140 Monitor Accelerations: Present Monitor Decelerations: Variable Monitor Variability: Moderate Assessment and Plan Assessment: induction ongoing Plan: Comments: Assessment: 37 year old at 37 1/7 weeks with gestational hypertension Failed induction Patient desires C section Plan: Primary C section The risks, benefits and alternatives to the procedure were explained to the patient. The risks including bleeding, infection, injury to the bowel, bladder, or ureters. She understands these risks and agrees to proceed. A full par Q was held and consent form was signed.
--- NOTE | 2023-08-14 11:43 | SUR.OPER ---
Supine on Padded OR bed, head on pillow, safety belt at thigh, arms secured on padded arm boards at <90 degrees abduction. Bump under right buttock. Legs uncrossed with pillow under knees, gel pad to heels, tape over blanket to lower legs.
--- NOTE | 2023-08-14 11:44 | PM.PREOP ---
Pre-operative Note Interval Note History & Physical reviewed/Exam performed by Physician: Yes Changes to H&P: No H&P completed within 30 days and has changed as indicated here:: 08/13/23
[2023-08-14] MEDS: LACTATED RINGERS 1,000 ML 1000 ML IV (11:48)
[2023-08-14] MEDS: ACETAMINOPHEN 325 MG TABLET 975 MG PO (11:49)
[2023-08-14] MEDS: CEFAZOLIN VIAL 3 GM in SODIUM CHLORIDE 0.9% 100 ML IV (12:10)
[2023-08-14] MEDS: AZITHROMYCIN 500 MG in DEXTROSE 5% IN WATER 250 ML 250 MG IV (12:45)
--- NOTE | 2023-08-14 12:55 | SUR.OPER ---
viable baby boy born at 1235, placenta delivered at 1238, cord blood and placenta given to OB RN , 4/7
[2023-08-14 13:23] VITALS: BP 139/89; PULSE 80; RESP 16; TEMP 36.6; O2SAT 100
--- NOTE | 2023-08-14 13:25 | PM.OBCS.1 ---
Operative Date/Time/Diagnoses Date of procedure: 08/14/23 Time of procedure: 13:25 Pre-op diagnosis: 37-1/7 weeks gestation Gestational hypertension Patient request to proceed to section Post-op diagnosis: same Procedure & Clinicians Procedure: Primary low-transverse section Same procedure as scheduled: Yes Indications: 37-year-old 1 para 0 at 37-,1/7 weeks gestation status post Cervidil cervical ripening and more than 24 hours of Pitocin induction of labor. Minimal cervical change Patient requests primary section Surgeon: Massiel Bryant Click Yes if Unassisted: No Flight Physician: Scott Morillo Reason for Flight Physician: The sourcing assistant was necessary to retract upon entry into the abdomen and uterus. He assisted with delivery of the infant with fundal pressure. He assisted with closure with retraction, clipping of suture, and closure of the contralateral fascia. Anesthesia Type: Epidural (With Duramorph) Operative Notes Findings: Live male in the LOT presentation At most, arcuate uterus Normal tubes and ovaries Closure Type: primary Specimen(s): cord blood and placenta Intraoperative meds administered: Duramorph, Ketorolac and Pitocin Applied: Catheter (To continuous drainage) and Drain(s) (RICARDA dressing) Estimated Blood Loss (mL): 500 Blood products transfused: none Procedure in detail: After informed consent was obtained, the patient was taken to the operating room where she was placed in the dorsal supine position with a leftward tilt and prepped and draped in the usual sterile fashion. Duramorph was given through the epidural. A Traxi was placed. After the epidural was found to be adequate, a Pfannenstiel skin incision was made 2 fingerbreadths above the pubic symphysis and carried through to the underlying layer fascia. The fascia was nicked in the midline and the incision extended bilaterally with the Bai scissors. The superior aspect of the fascial incision was grasped with the Dina clamps, elevated, and the underlying rectus muscles dissected off sharply and bluntly. Attention was then turned to the inferior aspect of this incision which in a similar fashion was grasped with a Dina, elevated, and the underlying rectus muscles dissected off sharply and bluntly. The rectus muscles were in the midline. The peritoneum was identified, entered sharply with the Metzenbaum scissors. This incision was extended superiorly and inferiorly with good visualization of the bladder. The bladder blade was inserted. The vesicouterine peritoneum was grasped with a pickup, entered sharply with the Metzenbaum scissors. This incision was extended bilaterally, and the bladder flap created digitally. The bladder blade was reinserted. The lower uterine segment was incised in a transverse fashion with the scalpel. Upon entering the amniotic sac, there was copious clear amniotic fluid. The 's head was found to be in the LOT presentation. It was delivered without difficulty. The nose and mouth were suctioned with bulb suction. The baby was crying upon exit from the uterus. The remainder of the body delivered without difficulty and was wrapped in warm blankets. Pitocin was given in the IV fluids. After 1 minute, the cord was double clamped and cut and the infant handed off to waiting RN and RT. The placenta was delivered by expression. The uterus was cleared of all clots and debris. The uterine incision was repaired with 1. Chromic in a running interlocking fashion, and a second layer of the same suture was used for an imbricating layer. Hemostasis was achieved. The tubes and ovaries were examined and were found to be normal. The gutters were cleared of all clots and debris. The bladder flap was reapproximated using 2-0 Vicryl in a running fashion. The parietal peritoneum was closed using 2-0 Vicryl in a running fashion. The fascia was reapproximated using 0 Vicryl in a running fashion. Cautery was used for hemostasis in the subcutaneous layer. And it was irrigated with warm normal saline. Four simple interrupted sutures with 3-0 Vicryl were placed to reapproximate the subcutaneous layer. The skin was closed with 4-0 Monocryl in a subcuticular fashion. Steri-Strips were placed. A RICARDA dressing was placed to suction. The uterus was expressed of a small amount of old blood. The uterus was marked 2 fingerbreadths below the umbilicus. Sponge, lap, and instrument counts were correct x2. The patient tolerated the procedure well, and was taken to PACU in stable condition. Complications: none [place] Baby 1: Gender: Male Presentation: vertex Position: Left Occiput Transverse Placental Delivery Description: Expressed Cord Vessel Description: 3 Vessels and Clamped/Cut (After 1 minute) score (1 min): 4 score (5 min): 7 score (10 min): 9 weight: 7 lb 2 oz Post-operative Condition: stable Disposition: PACU Aftercare: routine postop
[2023-08-14 13:30] VITALS: BP 132/79; PULSE 83; RESP 17; O2SAT 100
[2023-08-14 13:35] VITALS: BP 119/78; PULSE 83; RESP 16; TEMP 36.8; O2SAT 99
[2023-08-14 14:17] LABS: Add Manual Diff / Slide Review NO; Basophils Absolute Auto 0 /uL (0-100); Basophils Percent Auto 0.2 % (0-2); Eosinophils Absolute Auto 0 /uL (0-450); Eosinophils Percent Auto 0.1 % (2-4); Hematocrit 30.6 % (36-46); Hemoglobin 10.2 g/dL (12.0-16.0); Lymphocytes Absolute Auto 1200 /uL (1100-4500); Lymphocytes Percent Auto 8.1 % (25-40); Mean Corpuscular HGB Conc 33.2 % (30-36); Mean Corpuscular Hemoglobin 27.9 PG (26-34); Mean Corpuscular Volume 84.1 fL (80-100); Monocytes Absolute Auto 1100 /uL (0-900); Monocytes Percent Auto 7.4 % (3-14); Neutrophils Absolute Auto 12600 /uL (1500-7000); Neutrophils Percent Auto 84.2 % (50-75); Platelet Count 174 X10^3/uL (150-400); Red Blood Cell Count 3.64 X10^6/uL (4.0-5.2); Red Cell Distribution Width 13.7 % (11.6-14.8)
[2023-08-14] MEDS: KETOROLAC 30 MG/ML VIAL IV (19:09)
[2023-08-15] MEDS: KETOROLAC 30 MG/ML VIAL IV ×2 (01:28→07:30)
[2023-08-15] MEDS: ACETAMINOPHEN 325 MG TABLET 650 MG PO ×4 (01:29→23:25)
[2023-08-15 09:13] VITALS: BP 102/57; PULSE 68
[2023-08-15] MEDS: VENLAFAXINE ER 75 MG CAP 150 MG PO (09:13)
[2023-08-15] MEDS: PRENATAL VIT,CALC/IRON/FOLIC 1 TABLET 1 TAB PO (09:13)
[2023-08-15] MEDS: DOCUSATE 100 MG CAPSULE PO (09:13)
[2023-08-15] MEDS: LABETALOL 100 MG TABLET 200 MG PO ×2 (09:13→21:38)
--- NOTE | 2023-08-15 11:24 | PM.OBPN.1 ---
Subjective - OB Subjective Patient comments: no complaints (Passing flatus voiding ambulating) and pain well controlled (Pain is 2/10) [place] baby status: doing well feeding status: exclusively breast feeding Date Patient Seen: 08/15/23 Time Patient Seen: 11:24 Interval history: Patient is being seen for postop day 1. She just underwent a primary section for arrest of dilatation as well as occiput transverse. Exam Vital Signs (past 8 hours): - 08/15/23 09:13 Pulse Rate 68 Blood Pressure 102/57 L Oxygen Delivery Method Room Air Const General: cooperative and healthy appearing HENPA Head: normal to inspection Eyes General: appearance normal, both eyes and all related structures Resp Effort & Inspection: normal respiratory effort Auscultation: clear to auscultation bilaterally Cardio Palpation: normal PMI Rate: regular rate Rhythm: regular rhythm GI Inspection: normal to inspection and incision (Wound VAC is in place functioning well no erythema.) Palpation: soft and mass (Uterus is nontender it is 2 cm below the umbilicus.) Auscultation: normal bowel sounds Back/Spine/Pelvis Thoracic/Lumbar Spine: other (No CVA tenderness) Extrem Other: No calf tenderness Objective Labs 08/14/23 14:10 Labs: Laboratory Results - last 24 hr 08/14/23 14:10 WBC 15.0 H D RBC 3.64 L Hgb 10.2 L Hct 30.6 L MCV 84.1 MCH 27.9 MCHC 33.2 RDW 13.7 Plt Count 174 Neut % (Auto) 84.2 H D Lymph % (Auto) 8.1 L D [place] % (Auto) 7.4 Eos % (Auto) 0.1 L Baso % (Auto) 0.2 Neut # (Auto) 18844 H Lymph # (Auto) 1200 [place] # (Auto) 1100 H Eos # (Auto) 0 Baso # (Auto) 0 Assessment & Plan Plan day: 1 plan OB: routine postop care Time Spent With Patient Time: Total time spent is greater than 50% in coordination of care (as documented) at patient's floor/unit and/or counseling patient: Time with patient: 15-24 minutes
[2023-08-15] MEDS: IBUPROFEN 600 MG TABLET PO ×2 (14:29→21:37)
[2023-08-15 21:38] VITALS: BP 127/77; PULSE 89
[2023-08-15] MEDS: OXYCODONE IR 5 MG TABLET PO (23:24)
[2023-08-16] MEDS: IBUPROFEN 600 MG TABLET PO ×2 (03:57→10:22)
--- NOTE | 2023-08-16 06:59 | PM.OBDS.1 ---
Discharge Providers Provider Date of admission: 08/12/23 19:14 Discharge Date: 08/16/23 Primary care physician: Mario Fowler DO Consults: 08/12/23 20:33 Consult to Anesthesiology Urgent Comment: Consulting Provider: Anesthesiologist Reason for consultation: Epidural Has provider been notified: No 08/14/23 13:36 Consult to [employer] Routine Comment: Discharge provider: Scott Morillo MD Summary Hospital Course Date Patient Seen: 08/16/23 Time Patient Seen: 07:00 Diagnoses: 38-year-old G 1p 0 at 37 weeks with gestational hypertension. Patient was brought in for induction of labor. Hospital Course: Patient had cervical ripening. She had Pitocin initiated as well as a ROM at roughly noon. She had an IUPC placed at 5:00 a.m. at which time she was noted to be 3 cm. She was noted to have 210 MV use. However roughly 9:00 a.m. she had difficulty with emotional anxiety. An epidural was placed Pitocin was stopped and restarted roughly 2 hours later. She failed to change her cervix any further and remained at 3 cm. At noon she had a primary performed because of arrest of dilatation. Her postop course has been unremarkable she is taking a regular diet she is passing flatus she is ambulating she is controlled primarily with Motrin as well as Tylenol. She takes occasional oxycodone. Peripartum Data Infant Delivery Method: Section ( was performed for arrest of dilatation and descent.) Status at Discharge Cognitive/behavioral status at discharge: oriented Functional status at discharge: independent ambulation Overall status at discharge: patient is back to baseline Time Spent with Patient Time attestation: Total time spent providing and/or coordinating discharge services: Time spent: Less than 30 minutes Specific discharge activities: Pelvic rest for 6 weeks. Objective Labs 08/14/23 14:10 Exam Vital Signs (past 8 hours): Oxygen Delivery Method Room Air Const General: cooperative, healthy appearing and comfortable Nutritional Appearance: well nourished and obese Orientation: alert, awake and oriented x3 Eyes General: appearance normal, both eyes and all related structures Sclera: sclerae normal Pupils: PERRL Chest Chest: normal inspection of the chest Resp Effort & Inspection: normal respiratory effort Auscultation: clear to auscultation bilaterally Cardio Palpation: normal PMI Rate: regular rate Rhythm: regular rhythm GI Inspection: normal to inspection and incision (Wound VAC is in place without erythema and appears to show good suction.) Palpation: soft and mass (Uterus -3.) Auscultation: normal bowel sounds Neuro General: patient alert and patient awake Extrem Other: No calf tenderness bilaterally Psych Appearance: grossly normal Discharge Plan Discharge Plan Patient Disposition: Home Discharge orders & Medications Prescriptions: New ibuprofen 600 mg Tablet 600 mg PO Q6H PRN (Reason: Abdominal Pain) Qty: 30 0RF oxycodone 5 mg Tablet 5 mg PO Q4H PRN (Reason: Pain, Moderate (4-6)) Qty: 5 0RF Continued venlafaxine [Effexor XR] 150 mg capsule,extended release 24hr 150 mg PO DAILY prenat.vits,buddy,[id number] Tablet 1 tab PO DAILY Discontinued calcium carbonate [Tums] 200 mg calcium (500 mg) tablet,chewable 200 mg PO QID PRN (Reason: Acid Reflux) aspirin 81 mg tablet,delayed release (DR/EC) 81 mg PO DAILY No Action labetalol 100 mg tablet 100 mg PO BID Qty: 180 3RF nystatin 100,000 unit/gram powder 1 applic topical BID Qty: 60 1RF norethindrone (contraceptive) 0.35 mg tablet 0.35 mg PO DAILY Qty: 84 3RF Follow up/Referrals: Massiel Bryant MD [Physician] - Jessica Zhou PA-C [Advanced Client Service Consultant] - (Incision check w/ FELICIA Nascimento:Aug 19 @ 10:45am 6 week appt w/ Dr. Bryant: @ 1:45pm) Diet/Activity/Treatments Diet: Regular Activity: Nothing in vagina or lifting over 20 lb for 6 weeks Skin/Wound/Dressing Care Dressing: Leave dressing in place until 1 week postop appointment. Remove electronic portion dressing prior to showering Visit Report/Discharge Packet Instructions: DI for , DI for Depression Stand Alone Forms: Discharge: Care, Patient Portal/API Discharge Data Primary Care Provider: Mario Fowler
[2023-08-16 08:27] VITALS: BP 133/74; PULSE 75
[2023-08-16] MEDS: LABETALOL 100 MG TABLET 200 MG PO (08:27)
[2023-08-16] MEDS: ACETAMINOPHEN 325 MG TABLET 650 MG PO (08:27)
[2023-08-16] MEDS: DOCUSATE 100 MG CAPSULE PO (08:27)
[2023-08-16] MEDS: PRENATAL VIT,CALC/IRON/FOLIC 1 TABLET 1 TAB PO (08:27)
[2023-08-16 09:18] VITALS: BP 133/74; PULSE 75; RESP 16; TEMP 36.8
== END 2023-08-16 11:25 | disposition home or self-care (01) | DRG 788 ==
PROVIDERS: Obstetrics & Gynecology; Admitting Provider Obstetrics & Gynecology; PCP Family Medicine; Referring Provider Obstetrics & Gynecology; Visit Provider Obstetrics & Gynecology
PROC: 10D00Z1 Extraction of Products of Conception, Low, Open Approach (ICD-10-PCS; CPT 59514; principal; 2023-08-14 12:15)
DX: O10.02 Pre-existing essential hypertension complicating childbirth (principal); O61.0 Failed medical induction of labor; Z3A.37 37 weeks gestation of pregnancy; Z37.0 Single live birth; O76 Abnormality in fetal heart rate and rhythm complicating labor and delivery; O32.2XX0 Maternal care for transverse and oblique lie, not applicable or unspecified
CPT/HCPCS: 36415; 59050; 59510; 59514; 82570; 84156; 85025; 86850; 86900; 86901; 87081; 87653; G0379; J0690; J1885; J2274; J2405; J2590; J7121